=== PATIENT | female | born 1955 | race Caucasian/White ===

== ENCOUNTER 2019-02-19 13:38 | Inpatient (IN) | payer MEDICAID ==
[~2019-02-19] VITALS: Ht 167.6 cm; Wt 63.5 kg
[2019-02-19 13:49] VITALS: Ht 167.6 cm; Wt 63.5 kg
[2019-02-19 14:25] LABS: BASOPHIL % 0.5 % (0-2); PLATELET COUNT 181 x10^3mcL (130-400); RED CELL DISTRIBUTION WIDTH 14.1 % (11.5-14.5)
[2019-02-19 15:07] LABS: ALBUMIN 3.8 g/dL (3.4-5.0); ALKALINE PHOSPHATASE 46 U/L (46-116); ALT/SGPT 28 U/L (14-59); AST/SGOT 19 U/L (15-37); BILIRUBIN TOTAL 0.3 mg/dL (0.20-1.00); CALCIUM 9.3 mg/dL (8.5-10.1); CARBON DIOXIDE 27.5 mmol/L (21-32); CHLORIDE SERUM 105 mmol/L (98-107); CHOLESTEROL 189 mg/dL (<200); CREATININE SERUM 1.3 mg/dL (0.6-1.0); GFR1 44 mL/min; GLUCOSE SERUM 151 mg/dL (74-106); LIPASE 141 IU/L (73-393); MAGNESIUM 2.7 mg/dL (1.8-2.4); POTASSIUM SERUM 3.4 mmol/L (3.5-5.1); SODIUM SERUM 143 mmol/L (136-145); T4(THYROXINE) 7.2 ug/dL (4.7-13.3); TOTAL PROTEIN, SERUM 7.7 g/dL (6.4-8.2)
[2019-02-19 15:08] LABS: HDL CHOLESTEROL 65 mg/dL (40-60)
[2019-02-19 15:26] LABS: UA SPECIFIC GRAVITY 1.025 (1.005-1.035); microscopic required? YES; urine erythrocyte 1+ (NEGATIVE)
[2019-02-19 15:35] LABS: AMPHETAMINE QUAL UR NONE DETECTED (See below)
[2019-02-19 18:07] VITALS: BP 149/63
[2019-02-19] MEDS ORDERED: ATENOLOL25 MG PO (18:12)
[2019-02-19] MEDS ORDERED: XANAX0.5 MG PO (18:12)
[2019-02-19 19:20] VITALS: BP 136/70
[2019-02-20 05:41] VITALS: BP 127/56
[2019-02-20 06:17] LABS: BASOPHIL % 0.8 % (0-2); PLATELET COUNT 167 x10^3mcL (130-400); RED CELL DISTRIBUTION WIDTH 13.9 % (11.5-14.5)
[2019-02-20 06:48] LABS: CALCIUM 8.6 mg/dL (8.5-10.1); CARBON DIOXIDE 29.9 mmol/L (21-32); CHLORIDE SERUM 101 mmol/L (98-107); CREATININE SERUM 0.7 mg/dL (0.6-1.0); GFR1 > 60 mL/min; GLUCOSE SERUM 84 mg/dL (74-106); MAGNESIUM 2.2 mg/dL (1.8-2.4); POTASSIUM SERUM 3.9 mmol/L (3.5-5.1); SODIUM SERUM 135 mmol/L (136-145)
[2019-02-20 07:33] VITALS: BP 105/47
[2019-02-20 11:44] VITALS: BP 107/40
[2019-02-20 13:01] VITALS: BP 107/40
== END 2019-02-20 14:50 | disposition home or self-care (01) | DRG 48 ==
LOC: ED 13:38 → DU 16:58
PROVIDERS: Emergency Medicine; ADMIT Family Medicine
DX: G90.9 Disorder of the autonomic nervous system, unspecified (principal); N17.0 Acute kidney failure with tubular necrosis; E86.0 Dehydration; E87.6 Hypokalemia; I10 Essential (primary) hypertension; R73.03 Prediabetes; E78.5 Hyperlipidemia, unspecified; Z68.22 Body mass index [BMI] 22.0-22.9, adult
CPT/HCPCS: 36600; 82962; 83880; 87804; 90658; 97116-GP; G0378; G0480; J1815; J7030; Q0092